=== PATIENT | female | born 1970 | race Caucasian/White ===

== ENCOUNTER → 2020-05-23 | Outpatient (CLI) | payer BC ==
--- NOTE | 2020-05-23 13:48 | Diagnostic Imaging Report ---
INDICATION: HX OF URETERAL CALCULUS. TECHNIQUE: 2 supine view of the abdomen 12:39 PM CORRELATION STUDY: None FINDINGS: There is retained gastric contents along with a mild to moderate amount of retained stool. This does obscure for assessment of a small calculi. Definitive calcification over the renal silhouettes and or expected course of ureters not demonstrated. Osseous structures unremarkable. There is however very mild rightward rotation lumbar spine. IMPRESSION: 1. Nonobstructive appearing bowel gas pattern with mild/moderate stool retention. Dictated by: Dictated on workstation # [id number]
== END ==
LOC: RAD FS 12:29
PROVIDERS: ATTEND Urology
DX: K59.00 Constipation, unspecified (principal); Z87.442 Personal history of urinary calculi
CPT/HCPCS: 74018